=== PATIENT | male | born 1930 | race Caucasian/White ===

== ENCOUNTER 2016-12-29 22:49 | Inpatient (IN) | payer OTHER ==
[~2016-12-29] VITALS: Ht 167.6 cm; Wt 70.9 kg
[~2016-12-29 22:49] MED LIST: ADULT LOW DOSE81 M1 PO; ASPIRIN81 M1 PO; CHOLESTYRAMINE L4 GM PO; CILOSTAZOL100 MG PO; COLACE100 MG PO; FLOMAX0.4 MG PO; GLUCOPHAGE1000 MG PO; GLYBURIDE METF PO; GLYBURIDE5 MG PO; IMDUR30 MG PO; JANUVIA100 MG PO; LEVEMIR FL100 UNIT/1 SC; LO-DOSE ASPIRIN81 M1 PO; LOMOTIL TABLET1 EACH PO; MELATONIN5 M1 PO; METFORMIN HCL500 MG PO; METOPROLOL TART25 MG PO; METOPROLOL TART50 MG PO; NITROGLYCERIN0.4 MG SL; NITROSTAT0.4 MG SL; NOVOLOG PE100 UNITS/ SC; NOVOLOG100 UNIT/1 SC; PLAVIX75 MG PO; PLETAL100 M1 PO; PLETAL100 MG PO; PROTONIX40 MG PO; SERTRALINE HCL50 MG PO; SIMVASTATIN80 M1 PO; SIMVASTATIN80 MG PO; VICODIN 5-3001 EACH PO; VITAMIN B-12250 MCG PO; VITAMIN B-12500 MC3 PO; ZOFRAN4 MG PO; ZOLOFT50 MG PO
[2016-12-29 23:36] LABS: ADD MIUA? YES; BILIRUBIN NEGATIVE; BLOOD MODERATE; COLOR STRAW ((YELLOW)); GLUCOSE (STRIP) >=500; KETONES NEGATIVE; LEUKOCYTES NEGATIVE; NITRITE NEGATIVE; PROTEIN (STRIP) 30; SPECIFIC GRAVITY 1.005 (1.000-1.030); UROBILINOGEN 0.2 MG/DL (0.2-1.0)
[2016-12-29 23:40] LABS: BACTERIA NONE SEEN /HPF; EPITHELIAL CELLS NONE SEEN /HPF; MUCUS NONE SEEN /LPF; RED BLOOD CELLS 0-5 /HPF (0-5); UCUL ADDED? NO; WHITE BLOOD CELLS 0-5 /HPF (0-5)
[2016-12-30 01:08] LABS: EOSINOPHIL (%) 0.2 % (0-5); HEMATOCRIT 31.8 % (38.0-50.0); IMMATURE GRANULOCYTE (%) 0.7 % (0.0-0.7); IMMATURE GRANULOCYTE COUNT 0.1 K/uL; INSTRUMENT ABS NEUTROPHIL CT 7.9 K/uL; LYMPHOCYTE COUNT 0.5 K/uL (1.0-2.8); MCH 30.4 PG (29.0-34.0); MCHC 35.8 G/DL (30.0-36.0); MCV 84.8 FL (86-99); MONOCYTE (%) 4.8 % (3-12); MONOCYTE COUNT 0.4 K/uL (0-0.8); NEUTROPHIL (%) 88.2 % (45-76); NEUTROPHIL COUNT 7.9 K/uL (1.8-6.4); PLATELET COUNT 120 K/uL (156-360); RBC DIS.WIDTH-CV 12.7 % (11.8-14.6); RBC DIS.WIDTH-SD 38.5 % (39-53); RED BLOOD COUNT 3.75 M/uL (4.00-5.50)
[2016-12-30 01:28] LABS: ALKALINE PHOSPHATASE 50 IU/L (3-129); ANION GAP 13 MEQ/L (2-14); CHLORIDE 88 MEQ/L (99-109); GFR ESTIMATE (CALCULATED) 41 mL/min/; GLUCOSE 196 mg/dL (70-99); POTASSIUM 4.3 MEQ/L (3.7-5.4); SAMPLE HEMOLYSIS CHECK 0; SAMPLE ICTERIC CHECK 0; SAMPLE LIPEMIA CHECK 0; SODIUM 124 MEQ/L (136-147); TOTAL BILIRUBIN 0.7 MG/DL (0.0-1.0); UREA NITROGEN (BUN) 28 mg/dL (9-23)
[2016-12-30 03:58] LABS: HDL CHOLESTEROL 35 MG/DL (Desirable>=40); LDL CHOLESTEROL 44 mg/dL (Desirable<100); NON-HDL CHOLESTEROL 59 mg/dL (Desirable<160); TOTAL CHOLESTEROL 94 mg/dL (Desirable<200); TRIGLYCERIDES 76 MG/DL (Normal: <150)
[2016-12-30 04:00] VITALS: BP 170/78
[2016-12-30 07:07] LABS: Estimated Average Glucose 148 mg/dL (70-123); HEMOGLOBIN A1c (GLYCOHEMOGLOB) 6.8 % HGB (Below 5.7)
[2016-12-30 07:37] LABS: TROP-I INTERPRETATION NEGATIVE; TROPONIN-I 0.02 ng/mL (0.0-0.30)
[2016-12-30 08:35] VITALS: BP 169/75
[2016-12-30 11:20] VITALS: BP 142/79
[2016-12-30] MEDS ORDERED: MYRBETRIQ25 MG PO (12:47)
[2016-12-30] MEDS ORDERED: DUTASTERIDE0.5 MG PO (12:50)
[2016-12-30 13:34] LABS: ANION GAP 10 MEQ/L (2-14); CHLORIDE 94 MEQ/L (99-109); GFR ESTIMATE (CALCULATED) > 59 mL/min/; GLUCOSE 207 mg/dL (70-99); POTASSIUM 4.2 MEQ/L (3.7-5.4); SAMPLE HEMOLYSIS CHECK 0; SAMPLE ICTERIC CHECK 0; SAMPLE LIPEMIA CHECK 0; SODIUM 128 MEQ/L (136-147); UREA NITROGEN (BUN) 23 mg/dL (9-23)
[2016-12-30 13:36] LABS: TROP-I INTERPRETATION NEGATIVE; TROPONIN-I 0.01 ng/mL (0.0-0.30)
[2016-12-30 15:42] VITALS: BP 125/71
[2016-12-30 17:08] LABS: POINT-OF-CARE METER ID UU14188625
[2016-12-30 19:06] LABS: C DIFF TOXIN NEGATIVE (NEGATIVE)
[2016-12-30 19:09] LABS: PROBE CHECK PASS; SPECIMEN PROCESSING CONTROL PASS
[2016-12-30 19:50] VITALS: BP 143/83
[2016-12-31 00:31] VITALS: BP 108/64
[2016-12-31 05:52] LABS: EOSINOPHIL (%) 0.8 % (0-5); HEMATOCRIT 31.5 % (38.0-50.0); IMMATURE GRANULOCYTE (%) 0.4 % (0.0-0.7); INSTRUMENT ABS NEUTROPHIL CT 3.5 K/uL; LYMPHOCYTE COUNT 1.2 K/uL (1.0-2.8); MCH 31.6 PG (29.0-34.0); MCHC 36.5 G/DL (30.0-36.0); MCV 86.5 FL (86-99); MONOCYTE (%) 8.3 % (3-12); MONOCYTE COUNT 0.4 K/uL (0-0.8); NEUTROPHIL (%) 67.9 % (45-76); NEUTROPHIL COUNT 3.5 K/uL (1.8-6.4); PLATELET COUNT 148 K/uL (156-360); RBC DIS.WIDTH-CV 13.1 % (11.8-14.6); RED BLOOD COUNT 3.64 M/uL (4.00-5.50); WHITE BLOOD COUNT 5.2 K/uL (4.1-10.2)
[2016-12-31 06:21] LABS: ALKALINE PHOSPHATASE 49 IU/L (3-129); ANION GAP 9 MEQ/L (2-14); CHLORIDE 99 MEQ/L (99-109); GFR ESTIMATE (CALCULATED) 56 mL/min/; GLUCOSE 123 mg/dL (70-99); SAMPLE HEMOLYSIS CHECK 0; SAMPLE ICTERIC CHECK 0; SAMPLE LIPEMIA CHECK 0; SODIUM 133 MEQ/L (136-147); TOTAL BILIRUBIN 0.6 MG/DL (0.0-1.0); UREA NITROGEN (BUN) 23 mg/dL (9-23)
[2016-12-31 07:57] VITALS: BP 139/76
[2016-12-31 11:22] VITALS: BP 114/63
[2016-12-31 14:19] VITALS: BP 125/59
== END 2016-12-31 16:07 | disposition home health service (06) | DRG 641 ==
LOC: EME → EDBD 22:49 → EDOF 12-30 02:37 → 5SOUTH 12-30 02:37
PROVIDERS: Emergency Medicine; Hospitalist
DX: E87.1 Hypo-osmolality and hyponatremia (principal); D64.9 Anemia, unspecified; E11.22 Type 2 diabetes mellitus with diabetic chronic kidney disease; I12.9 Hypertensive chronic kidney disease with stage 1 through stage 4 chronic kidney disease, or unspecified chronic kidney disease; N18.3 Chronic kidney disease, stage 3 (moderate); E78.5 Hyperlipidemia, unspecified; I25.10 Atherosclerotic heart disease of native coronary artery without angina pectoris; K21.9 Gastro-esophageal reflux disease without esophagitis; S50.01XA Contusion of right elbow, initial encounter; S51.012A Laceration without foreign body of left elbow, initial encounter; W19.XXXA Unspecified fall, initial encounter; I69.320 Aphasia following cerebral infarction; I69.351 Hemiplegia and hemiparesis following cerebral infarction affecting right dominant side; Z79.4 Long term (current) use of insulin; Z79.82 Long term (current) use of aspirin; Z79.84 Long term (current) use of oral hypoglycemic drugs; Z85.828 Personal history of other malignant neoplasm of skin; Z95.5 Presence of coronary angioplasty implant and graft; Z79.02 Long term (current) use of antithrombotics/antiplatelets
CPT/HCPCS: 70450; 70551; 71010; 73080; 80048; 80053; 80061; 81003; 82948; 83036; 83605; 84295; 84484; 85025; 85027; 87040; 87493; 99281; 99285; J1644; J1815; J7030

== ENCOUNTER 2017-01-04 14:39 | Emergency (ER) | payer OTHER ==
[~2017-01-04] VITALS: Ht 170.2 cm; Wt 69.4 kg
[~2017-01-04 14:39] MED LIST changes: +DUTASTERIDE0.5 MG PO; +MYRBETRIQ25 MG PO
[2017-01-04 15:54] LABS: HEMATOCRIT 29.9 % (38.0-50.0); MCH 30.9 PG (29.0-34.0); MCHC 35.1 G/DL (30.0-36.0); MCV 87.9 FL (86-99); MEAN PLAT.VOLUME 9.4 uM^3 (9.0-12.4); PLATELET COUNT 119 K/uL (156-360); RBC DIS.WIDTH-SD 41.8 % (39-53); WHITE BLOOD COUNT 4.9 K/uL (4.1-10.2)
[2017-01-04 16:03] LABS: CHLORIDE 100 mEq/L (99-109); POTASSIUM 4.6 mEq/L (3.7-5.4); SODIUM 135 mEq/L (136-147)
[2017-01-04 16:04] LABS: GLUCOSE 171 mg/dL (70-99)
[2017-01-04 16:06] LABS: ANION GAP 10 MEQ/L (2-14)
[2017-01-04 16:08] LABS: GFR ESTIMATE (CALCULATED) 51 mL/min/
[2017-01-04 16:09] LABS: UREA NITROGEN (BUN) 24 mg/dL (9-23)
[2017-01-04 18:10] LABS: ADD MIUA? NO; BILIRUBIN NEGATIVE; BLOOD NEGATIVE; COLOR YELLOW ((YELLOW)); GLUCOSE (STRIP) >=500; KETONES NEGATIVE; LEUKOCYTES NEGATIVE; NITRITE NEGATIVE; PROTEIN (STRIP) NEGATIVE; UCUL ADDED? NO; UROBILINOGEN 0.2 MG/DL (0.2-1.0)
[2017-01-04 19:48] VITALS: BP 156/78
== END 2017-01-04 19:48 | disposition home or self-care (01) ==
LOC: EME 14:39
PROVIDERS: Emergency Medicine
DX: E86.0 Dehydration (principal); E11.9 Type 2 diabetes mellitus without complications; E78.5 Hyperlipidemia, unspecified; I10 Essential (primary) hypertension; K21.9 Gastro-esophageal reflux disease without esophagitis; Z87.442 Personal history of urinary calculi; Z86.73 Personal history of transient ischemic attack (TIA), and cerebral infarction without residual deficits; Z98.61 Coronary angioplasty status; Z79.4 Long term (current) use of insulin; Z79.02 Long term (current) use of antithrombotics/antiplatelets; Z79.82 Long term (current) use of aspirin
CPT/HCPCS: 80048; 81003; 85027; 99281; 99285; J7030

== ENCOUNTER 2017-01-09 13:34 | Emergency (ER) | payer OTHER ==
[~2017-01-09] VITALS: Ht 172.7 cm; Wt 68.5 kg
[2017-01-09 14:21] LABS: ADD MIUA? NO; BILIRUBIN NEGATIVE; BLOOD NEGATIVE; COLOR STRAW ((YELLOW)); GLUCOSE (STRIP) >=500; KETONES NEGATIVE; LEUKOCYTES NEGATIVE; NITRITE NEGATIVE; PROTEIN (STRIP) NEGATIVE; SPECIFIC GRAVITY 1.002 (1.000-1.030); UCUL ADDED? NO; UROBILINOGEN 0.2 MG/DL (0.2-1.0)
[2017-01-09 15:08] LABS: EOSINOPHIL (%) 1.1 % (0-5); EOSINOPHIL COUNT 0.1 K/uL (0-0.3); HEMATOCRIT 32.4 % (38.0-50.0); IMMATURE GRANULOCYTE (%) 0.4 % (0.0-0.7); INSTRUMENT ABS NEUTROPHIL CT 4.1 K/uL; LYMPHOCYTE COUNT 0.7 K/uL (1.0-2.8); MCH 30.8 PG (29.0-34.0); MCHC 35.2 G/DL (30.0-36.0); MCV 87.6 FL (86-99); MEAN PLAT.VOLUME 9.5 uM^3 (9.0-12.4); MONOCYTE (%) 7.8 % (3-12); MONOCYTE COUNT 0.4 K/uL (0-0.8); NEUTROPHIL (%) 78.2 % (45-76); NEUTROPHIL COUNT 4.1 K/uL (1.8-6.4); PLATELET COUNT 107 K/uL (156-360); RBC DIS.WIDTH-SD 41.1 % (39-53); WHITE BLOOD COUNT 5.3 K/uL (4.1-10.2)
[2017-01-09 15:19] LABS: CHLORIDE 101 mEq/L (99-109); POTASSIUM 4.6 mEq/L (3.7-5.4); SODIUM 135 mEq/L (136-147)
[2017-01-09 15:20] LABS: GLUCOSE 232 mg/dL (70-99)
[2017-01-09 15:22] LABS: ANION GAP 11 MEQ/L (2-14)
[2017-01-09 15:24] LABS: GFR ESTIMATE (CALCULATED) 47 mL/min/
[2017-01-09 15:25] LABS: UREA NITROGEN (BUN) 15 mg/dL (9-23)
[2017-01-09 15:28] LABS: TROP-I INTERPRETATION NEGATIVE; TROPONIN-I < 0.01 ng/mL (0.0-0.30)
[2017-01-09 16:12] VITALS: BP 146/81
== END 2017-01-09 16:13 | disposition home or self-care (01) ==
LOC: EME 13:34
PROVIDERS: Emergency Medicine
DX: I95.9 Hypotension, unspecified (principal); I99.8 Other disorder of circulatory system; I10 Essential (primary) hypertension; I69.320 Aphasia following cerebral infarction; E11.9 Type 2 diabetes mellitus without complications; Z79.4 Long term (current) use of insulin; E78.5 Hyperlipidemia, unspecified; K21.9 Gastro-esophageal reflux disease without esophagitis; I25.10 Atherosclerotic heart disease of native coronary artery without angina pectoris; Z95.5 Presence of coronary angioplasty implant and graft; F32.9 Major depressive disorder, single episode, unspecified
CPT/HCPCS: 71020; 80048; 81003; 84484; 85025; 93005; 99281; 99284

== ENCOUNTER 2017-01-10 08:05 | Emergency (ER) | payer OTHER ==
[~2017-01-10] VITALS: Ht 172.7 cm; Wt 70.6 kg
[2017-01-10 08:56] LABS: EOSINOPHIL (%) 1.6 % (0-5); EOSINOPHIL COUNT 0.1 K/uL (0-0.3); HEMATOCRIT 33.1 % (38.0-50.0); IMMATURE GRANULOCYTE (%) 0.8 % (0.0-0.7); INSTRUMENT ABS NEUTROPHIL CT 3.8 K/uL; LYMPHOCYTE COUNT 0.9 K/uL (1.0-2.8); MCH 30.4 PG (29.0-34.0); MCV 86.6 FL (86-99); MONOCYTE (%) 7.4 % (3-12); MONOCYTE COUNT 0.4 K/uL (0-0.8); NEUTROPHIL (%) 72.9 % (45-76); NEUTROPHIL COUNT 3.8 K/uL (1.8-6.4); PLATELET COUNT 107 K/uL (156-360); RBC DIS.WIDTH-CV 12.9 % (11.8-14.6); RBC DIS.WIDTH-SD 40.2 % (39-53); RED BLOOD COUNT 3.82 M/uL (4.00-5.50); WHITE BLOOD COUNT 5.2 K/uL (4.1-10.2)
[2017-01-10 08:58] LABS: INTER. NORMALIZED RATIO 1.1; PROTHROMBIN TIME 12.4 SEC (10.2-12.9)
[2017-01-10 09:17] LABS: ANION GAP 14 MEQ/L (2-14); CHLORIDE 97 MEQ/L (99-109); POTASSIUM 4.3 MEQ/L (3.7-5.4); SAMPLE HEMOLYSIS CHECK 0; SAMPLE ICTERIC CHECK 0; SAMPLE LIPEMIA CHECK 0; SODIUM 132 MEQ/L (136-147)
[2017-01-10 09:22] LABS: GFR ESTIMATE (CALCULATED) 51 mL/min/; GLUCOSE 192 mg/dL (70-99); UREA NITROGEN (BUN) 18 mg/dL (9-23)
[2017-01-10 10:50] LABS: TROP-I INTERPRETATION NEGATIVE; TROPONIN-I 0.02 ng/mL (0.0-0.30)
[2017-01-10 11:33] VITALS: BP 152/77
== END 2017-01-10 11:59 | disposition home or self-care (01) ==
LOC: EME 08:05
PROVIDERS: Emergency Medicine
DX: I95.9 Hypotension, unspecified (principal); E78.5 Hyperlipidemia, unspecified; I10 Essential (primary) hypertension; K21.9 Gastro-esophageal reflux disease without esophagitis; E11.9 Type 2 diabetes mellitus without complications; Z86.73 Personal history of transient ischemic attack (TIA), and cerebral infarction without residual deficits; Z87.442 Personal history of urinary calculi; Z79.84 Long term (current) use of oral hypoglycemic drugs
CPT/HCPCS: 71010; 80048; 84484; 85025; 85610; 85730; 93005; 99281; 99284